=== PATIENT | female | born 1965 | race Asian ===

== ENCOUNTER 2019-06-10 09:27 | Emergency (ER) | payer OTHER ==
[~2019-06-10] VITALS: Ht 167.6 cm; Wt 67.1 kg
[2019-06-10 09:51] VITALS: Ht 167.6 cm; Wt 67.1 kg
[2019-06-10 10:33] LABS: PLATELET COUNT 351 x10^3mcL (130-400)
[2019-06-10 10:35] LABS: CALCIUM 8.9 mg/dL (8.5-10.1); CARBON DIOXIDE 31.4 mmol/L (21-32); CHLORIDE SERUM 103 mmol/L (98-107); CREATININE SERUM 0.8 mg/dL (0.6-1.0); GFR1 > 60 mL/min; GLUCOSE SERUM 120 mg/dL (74-106); POTASSIUM SERUM 3.1 mmol/L (3.5-5.1); SODIUM SERUM 139 mmol/L (136-145)
[2019-06-10 10:36] LABS: RED CELL DISTRIBUTION WIDTH 16.3 % (11.5-14.5)
[2019-06-10 10:40] LABS: ALKALINE PHOSPHATASE 54 U/L (46-116); ALT/SGPT 23 U/L (14-59); AST/SGOT 11 U/L (15-37); BILIRUBIN TOTAL 0.4 mg/dL (0.20-1.00); TOTAL PROTEIN, SERUM 7.7 g/dL (6.4-8.2)
[2019-06-10 11:19] LABS: BAND NEUTROPHIL 0 % (0-10); BASOPHIL 0 % (0-2); MONOCYTE 8 % (0-7); SEGMENTED NEUTROPHILS 69 % (37-75)
[2019-06-10 11:21] LABS: PLATELET MORPHOLOGY PLATELETS NORMAL; ovalocyte/elliptocyte 1+; rbc morphology (normal/abnorm) ABNORMAL (NORMAL); tear drop cell (dacryocyte) 1+
[2019-06-10 14:45] VITALS: BP 156/91
== END 2019-06-10 14:45 | disposition home or self-care (01) ==
LOC: ED 09:27
DX: K20.9 Esophagitis, unspecified (principal); D64.9 Anemia, unspecified; Z98.890 Other specified postprocedural states
CPT/HCPCS: 36415